=== PATIENT | female | born 2000 | race African-American/Black ===

== ENCOUNTER 2021-01-31 15:09 | Emergency (ER) | payer BC ==
--- NOTE | 2021-01-31 15:21 | EDM.PDOC ---
ED HPI GENERAL MEDICAL PROBLEM - General Chief Complaint: ENT Problem Stated Complaint: SORE THROAT Time Seen by Provider: 01/31/21 15:20 Source of Information: Reports: Patient History Limitations: Reports: No Limitations - History of Present Illness INITIAL COMMENTS - FREE TEXT/NARRATIVE: 20-year-old female presents to the ED complaining of fever and severe sore throat. She woke with sore throat yesterday morning. Fever started about the same time. Associated mild chills. She was checked in the clinic yesterday for Covid and rapid strep was negative and she was not given any medications. She states fever was up to 104 degrees during the night and she was hot at times and had to throw the covers off and other times chills of the bone. Throat is very sore this morning worse than yesterday and she is not hardly been able to eat or swallow at all. She has not had any COVID-19 vaccination. She denies cough or sputum production. She denies nausea vomiting or diarrhea. Onset: Sudden Onset Date: 01/30/21 Onset Time: 06:00 Duration: Day(s):, Getting Worse Location: Reports: Neck (Severe sore throat), Generalized ( minimal nasal congestion generalized myalgia high fever with chills) Quality: Reports: Ache, Other (Burning pain with attempt to swallow.) Severity: Severe Improves with: Reports: None (She took Motrin during the night but did not feel that brought her temperature down at all.) Worsens with: Reports: Other (Trying to eat or drink.) Context: Denies: Activity, Exercise, Lifting, Sick Contact, Trauma, Other Associated Symptoms: Reports: Fever/Chills, Headaches, Loss of Appetite, Malaise, Nausea/Vomiting, Weakness (Nausea with no vomiting). 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 - Related Data Allergies Allergy/AdvReac Type Severity Reaction Status Date / Time Sulfa (Sulfonamide Allergy Cannot Verified 01/31/21 15:19 Antibiotics) Remember Home Meds: Home Meds Adalimumab [Humira(Cf) Pen Crohn's-Uc-Hs] ASDIRECTED 01/31/21 [History] Cefdinir [Omnicef] 300 mg PO BID #16 cap 01/31/21 [Rx] Mercaptopurine [Purixan] 20 mg PO ASDIRECTED 01/31/21 [History] Past Medical History Gastrointestinal History: Reports: Inflammatory Bowel Disease (Patient has Crohn's disease diagnosed 4 years ago.) Social & Family History - Tobacco Use Tobacco Use Status *Q: Never Tobacco User Second Hand Smoke Exposure: No - Caffeine Use Caffeine Use: Reports: Coffee - Recreational Drug Use Recreational Drug Use: No - Living Situation & Occupation Living situation: Reports: Single Occupation: Student ED ROS ENT - Review of Systems Review Of Systems: See Below Constitutional: Reports: Fever, Chills, Malaise, Weakness, Fatigue, Decreased Appetite HEENT: Reports: Ear Pain (Pain radiates up into ears with swallowing), Throat Pain, Throat Swelling (Severe throat pain) Respiratory: Denies: Shortness of Breath, Wheezing, Pleuritic Chest Pain, Cough, Sputum Cardiovascular: Denies: Chest Pain, Blood Pressure Problem, Claudication, Dyspnea on Exertion, Edema, Lightheadedness, Orthopnea Endocrine: Reports: Fatigue GI/Abdominal: Reports: Decreased Appetite : Reports: No Symptoms Musculoskeletal: Reports: Muscle Pain (Generalized myalgia) Skin: Reports: No Symptoms Neurological: Reports: Headache, Weakness. Denies: Confusion, Dizziness, Numbness, Syncope, Tingling, Tremors, Trouble Speaking, Difficulty Walking (Generalized), Change in Speech Psychiatric: Reports: No Symptoms Hematologic/Lymphatic: Reports: No Symptoms Immunologic: Reports: No Symptoms ED EXAM, ENT - Physical Exam Exam: See Below Exam Limited By: No Limitations General Appearance: Alert, WD/WN, Mild Distress, Other (Patient is very warm to palpation. Nurses recorded temperature is 37.2 but she is much warmer than this. I would anticipate 39 degrees clinically. Heart rate was 126 at the bedside respiratory to 16 with O2 sats of 97% room air BP is 145/81) Eye Exam: Bilateral Eye: Normal Inspection (No blepharal pallor or scleral icterus), PERRL Mouth/Throat: Pharyngeal Erythema, Tonsillar Erythema, Tonsillar Exudates, Tonsillar Swelling Head: Atraumatic, Normocephalic Neck: Normal Inspection, Supple, Non-Tender, Lymphadenopathy (L), Lymphadenopathy (R) (Moderate mild) Respiratory/Chest: No Respiratory Distress, Lungs Clear, Normal Breath Sounds, No Accessory Muscle Use Cardiovascular: Normal Peripheral Pulses (Sinus tachycardia), Regular Rate, Rhythm, No Edema, No Gallop, No Murmur, No Rub, Tachycardia GI/Abdominal: Normal Bowel Sounds, Soft, Non-Tender, No Organomegaly, No Distention, No Mass, Pelvis Stable Back: Normal Inspection, Full Range of Motion, CVA Tenderness (L) (Mild mild), CVA Tenderness (R) Extremities: Normal Inspection, Normal Range of Motion, Non-Tender, No Pedal Edema Neurological: Alert, Oriented, CN II-XII Intact, Normal Cognition Psychiatric: Normal Affect (Only anxious), Anxious Skin: Warm, Dry, Intact, Normal Color, No Rash, Other (Very warm to palpation) Course - Vital Signs Last Recorded V/S: Last Vital Signs Temp 37.2 C 01/31/21 15:14 Pulse 126 H 01/31/21 15:14 Resp 16 01/31/21 15:14 BP 145/81 H 01/31/21 15:14 Pulse Ox 97 01/31/21 15:14 - Orders/Labs/Meds Labs: Laboratory Tests 01/31/21 01/31/21 Range/Units 15:16 15:18 SARS-CoV-2 RNA (CATE) Negative (NEGATIVE) Group A Strep (PCR) Not detected (NOT DETECT) Meds: Medications Discontinued Medications Generic Name Dose Route Start Last Admin Trade Name Frank PRN Reason Stop Dose Admin Acetaminophen 975 mg 01/31/21 15:35 01/31/21 16:03 Acetaminophen 325 Mg Tab PO 01/31/21 15:36 975 mg ONETIME ONE Administration Dexamethasone 12 mg 01/31/21 15:35 01/31/21 16:13 Dexamethasone 10 Mg/Ml Sdv IVPUSH 01/31/21 15:36 12 mg ONETIME ONE Administration Hydromorphone HCl 0.5 mg 01/31/21 15:34 01/31/21 16:11 Hydromorphone 0.5 Mg/0.5 Ml Syringe IVPUSH 01/31/21 15:35 0.5 mg ONETIME ONE Administration Dextrose/Sodium Chloride 1,000 mls @ 999 mls/hr 01/31/21 15:45 01/31/21 16:13 Dextrose 5%-Normal Saline IV 999 mls/hr ASDIRECTED KAVITHA Administration Ceftriaxone Sodium 2 gm/ 100 mls @ 200 mls/hr 01/31/21 15:35 01/31/21 16:13 Sodium Chloride IV 01/31/21 16:04 200 mls/hr ONETIME ONE Administration Ketorolac Tromethamine 30 mg 01/31/21 15:45 01/31/21 16:12 Ketorolac 30 Mg/Ml Sdv IVPUSH 30 mg ONETIME KAVITHA Administration Ondansetron HCl 4 mg 01/31/21 15:34 01/31/21 16:04 Ondansetron 4 Mg/2 Ml Sdv IVPUSH 01/31/21 15:35 4 mg ONETIME ONE Administration - Radiology Interpretation Free Text/Narrative:: 20-year-old female presents to the ED for evaluation of sudden onset of high fever associate with generalized myalgia headache and myalgia. Associated chills during the night. Associated development of severe sore throat starting yesterday morning and has worsened over the last 24 hours. She was seen at the clinic yesterday and had a negative Covid and rapid strep screen. She was not given any other medications. She was taking Motrin during the night but nothing since. On examination here her temperature is 103.2 degrees on retesting. Examination reveals bilateral follicular tonsillitis with exudate bilaterally and moderate submandibular adenopathy. Lungs were clear to all station percussion. The triage nurse has all ready checked her again for Covid and rapid strep. Plan she will be given Toradol 30 mg IV and Tylenol 9 7 5 mg orally. She will also be given Dilaudid 0.5 mg with Zofran 4 mg IV. I am also going to give her 12 mg of dexamethasone to help reduce the inflammation and swelling of her tonsils since she can barely swallow at this time. - Re-Assessments/Exams Free Text/Narrative Re-Assessment/Exam: 01/31/21 16:33 patient states she is already feeling better and able to swallow some fluids. She appears to have good 20 minutes left of her Rocephin infusion. 01/31/21 17:20: Patient has completed her Rocephin infusion 2 g IV. She will be discharged home on Omnicef 300 mg twice daily for another 8 days starting tomorrow morning. We will continue Motrin 600 mg every 6 hours alternating with Tylenol 1 g 3 hours after the Motrin dose for fever and pain relief. She will stick to a clear fluid diet and soft diet such as milkshake and ice cream and pudding etc. She is to expect marked improvement over the next 36 to 48 hours. Clinically I did not suspect infectious mononucleosis. Of note rapid strep screen and COVID-19 screen both came back negative once again. Departure - Departure Time of Disposition: 17:15 Disposition: Home, Self-Care 01 Condition: Fair Clinical Impression: Tonsillitis with exudate, Acute febrile illness, Tonsillitis - Discharge Information *PRESCRIPTION DRUG MONITORING PROGRAM REVIEWED*: Not Applicable *COPY OF PRESCRIPTION DRUG MONITORING REPORT IN PATIENT HEIDY: Not Applicable Prescriptions: Cefdinir [Omnicef] 300 mg PO BID #16 cap Instructions: Tonsillitis, [id number] Referrals: PCP,None [Primary Care Provider] - Forms: ED Department Discharge Additional Instructions: Evaluation in the emergency room today in regards to acute onset of fever and severe sore throat yesterday. You were tested in the clinic for strep and COVID-19 illness and both test came back negative. On examination in the ED your very warm to palpation with temperature of nearly 103 degrees. Exam reveals bilateral follicular tonsillitis with mild submandibular lymphadenopathy slightly worse on the left side as compared to the right. COVID-19 screen once again came back negative. You were treated with dexamethasone 12 mg IV to help reduce pain and swelling of the tonsils. You were treated with intravenous antibiotic Rocephin 2 g IV to bring the infection under control. Will need to continue Motrin 600 mg every 6 hours to help control fever and pain. I would suggest using Tylenol 1 g 3 hours after the Motrin dose to bring pain and fever under control as well. Both of these medications would likely be required over the next 36 to 48 hours at which time things should markedly be improved. You will need to take antibiotic Omnicef 300 mg tablet twice daily for the next 8 days starting tomorrow morning to bring the infection under total control. Again expect marked improvement over the next 36 to 72 hours. Plenty of fluids such as Gatorade or Powerade as this will maintain hydration. Soft diet as we discussed such as milkshakes, yogurt, ice cream, puddings etc. Sepsis Event Note (ED) - Evaluation Sepsis Screening Result: No Definite Risk - Focused Exam Vital Signs: Vital Signs Temp Pulse Resp BP Pulse Ox 01/31/21 15:14 37.2 C 126 H 16 145/81 H 97
[2021-01-31] MEDS ORDERED: HYDROmorphone 0.5 MG/0.5 ML Syringe IVPUSH ONE (15:34)
[2021-01-31] MEDS ORDERED: Ondansetron 4 MG/2 ML SDV IVPUSH ONE (15:34)
[2021-01-31] MEDS ORDERED: Acetaminophen 325 MG Tab PO ONE (15:35)
[2021-01-31] MEDS ORDERED: cefTRIAXone 2 GM in Sodium Chloride 0.9% 100 ML IV ONE (15:35)
[2021-01-31] MEDS ORDERED: Dexamethasone 10 MG/ML SDV IVPUSH ONE (15:35)
[2021-01-31] MEDS ORDERED: Ketorolac 30 MG/ML SDV IVPUSH SCH (15:45)
[2021-01-31] MEDS ORDERED: Dextrose 5%-0.9% NaCl 1,000 ML IV SCH (15:45)
== END 2021-01-31 17:20 | disposition home or self-care (01) ==
LOC: JD.ED 15:09
DX: J03.90 Acute tonsillitis, unspecified (principal); Z88.2 Allergy status to sulfonamides; Z20.822 Contact with and (suspected) exposure to COVID-19
CPT/HCPCS: 87635; 87651; 96365; 96375; 99283; A9270; J0696; J1100; J1170; J1885; J2405; J7042; U0002